=== PATIENT | female | born 1995 | race Caucasian/White ===

== ENCOUNTER 2017-05-11 14:59 | Emergency (ER) | payer OTHER ==
[2017-05-11 15:34] VITALS: BP 117/74
--- NOTE | 2017-05-11 15:47 | UC ---
Respiratory Complaint HPI - HPI Summary HPI Summary: Pt c/o gradual onset of cough, sob with exertion and generalized malaise X 2 days. - History of Current Complaint Chief Complaint: UCGeneralIllness Stated Complaint: COUGH, WEAK, NAUSEOUS Time Seen by Provider: 05/11/17 15:35 Hx Obtained From: Patient Hx Last Menstrual Period: 2 WKS AGO ?: No Onset/Duration: Gradual Onset, Lasting Days, Still Present Severity Initially: Mild Severity Currently: Mild Pain Intensity: 7 Character: Cough: Nonproductive Aggravating Factors: Exertion, Recumbent Position Associated Signs And Symptoms: Positive: Chills, URI - Risk Factors Pulmonary Embolism Risk Factors: Recent Travel Cardiac Risk Factors: Negative Pseudomonas Risk Factors: Negative Tuberculosis Risk Factors: Negative - Allergies/Home Medications Allergies/Adverse Reactions: Allergies Allergy/AdvReac Type Severity Reaction Status Date / Time No Known Allergies Allergy Verified 05/11/17 15:26 Home Medications: Home Medications D-Methorphan/PE/Acetaminophen [Daytime Cold-Flu Softgel] 2 each PO QID 05/11/17 [History Confirmed 05/11/17] Escitalopram Oxalate [Lexapro 10 mg] 10 mg PO DAILY 05/11/17 [History Confirmed 05/11/17] Minocycline HCl [Minocin] 100 mg PO DAILY 05/11/17 [History Confirmed 05/11/17] PMH/Surg Hx/FS Hx/Imm Hx Previously Healthy: Yes - Surgical History Surgical History: None - Family History Known Family History: Positive: Cardiac Disease - Social History Occupation: Student Lives: Dormitory/Roommates Alcohol Use: Rare Substance Use Type: None Smoking Status (MU): Never Smoked Tobacco Have You Smoked in the Last Year: No Review of Systems Constitutional: Fatigue Skin: Negative Eyes: Negative ENT: Sore Throat, Sinus Congestion Respiratory: Shortness Of Breath - with exertion, Cough Cardiovascular: Negative Gastrointestinal: Negative Genitourinary: Negative Motor: Negative Neurovascular: Negative Musculoskeletal: Negative Neurological: Negative Psychological: Negative Is Patient Immunocompromised?: No All Other Systems Reviewed And Are Negative: Yes Physical Exam Triage Information Reviewed: Yes Appearance: Well-Appearing Vital Signs: Initial Vital Signs Temp 99.5 F 05/11/17 15:29 Pulse 102 05/11/17 15:29 Resp 12 05/11/17 15:29 BP 117/74 05/11/17 15:29 Pulse Ox 99 05/11/17 15:29 Vital Signs Reviewed: Yes Eye Exam: Normal ENT Exam: Other ENT: Positive: Nasal congestion Dental Exam: Normal Neck exam: Normal Respiratory Exam: Normal Respiratory: Positive: Normal breath sounds, No respiratory distress Cardiovascular Exam: Normal Musculoskeletal Exam: Normal Neurological Exam: Normal Psychological Exam: Normal Skin Exam: Normal UC Diagnostic Evaluation - Laboratory O2 Sat by Pulse Oximetry: 99 Respiratory Course/Dx - Course Course Of Treatment: I discussed the pts vital signs with her. - Differential Dx/Diagnosis Differential Diagnosis/HQI/PQRI: Bronchitis, Influenza, Pulmonary Embolism Provider Diagnoses: URI. cough. tachycardia Discharge - Discharge Plan Condition: Stable Disposition: HOME Prescriptions: Albuterol HFA INHALER* [Ventolin HFA Inhaler*] 1 - 2 puff INH Q6H PRN #1 mdi PRN Reason: Sob/Wheezing Benzonatate CAP* [Tessalon 100 MG CAP*] 100 mg PO Q8H PRN #21 cap PRN Reason: Cough methylPREDNISolone TAB* [Medrol TAB*] 4 - 8 mg PO .SEE PHYLLIS #1 phyllis Patient Education Materials: Upper Respiratory Infection (DC) Referrals: [facility] [Outside] No Primary Care Phys,NOPCP [Primary Care Provider] - Additional Instructions: Please follow up with your PCP or return to clinic as needed.
== END 2017-05-11 15:53 | disposition home or self-care (01) ==
LOC: UCCORT 14:59
DX: J06.9 Acute upper respiratory infection, unspecified (principal); R05 Cough; R00.0 Tachycardia, unspecified
CPT/HCPCS: 99202; G0463